=== PATIENT | male | born 1960 | race American Indian/Alaskan Native ===

== ENCOUNTER 2022-03-06 04:48 | Emergency (ER) | payer BC ==
[2022-03-06] MEDS ORDERED: ASPIRIN 325 MG TAB PO ONE (05:08)
[2022-03-06 05:39] LABS: Basophils # (Auto) 0.1 K/mm3 (0.0-0.1); Basophils % (Auto) 0.8 % (0.0-1.8); Eosinophils # (Auto) 0.2 K/mm3 (0.0-0.4); Eosinophils % (Auto) 1.9 % (0.0-4.3); Hematocrit 40.1 % (35.5-45.6); Hemoglobin 13.3 gm/dl (11.8-15.2); Lymphocytes # (Auto) 2.2 K/mm3 (1.2-5.4); Lymphocytes % (Auto) 25.8 % (13.4-35.0); Mean Corpuscular HGB Conc 33 % (32-34); Mean Corpuscular Volume 93 fl (84-94); Monocytes # (Auto) 0.9 K/mm3 (0.0-0.8); Monocytes % (Auto) 10.1 % (0.0-7.3); Platelet Count 293 K/mm3 (140-440); Red Blood Count 4.32 M/mm3 (3.65-5.03); Red Cell Distribution Width 12.9 % (13.2-15.2)
--- NOTE | 2022-03-06 05:39 | XRay Report ---
XR chest routine 2V INDICATION / CLINICAL INFORMATION: CHEST PAIN. COMPARISON: None available. FINDINGS: SUPPORT DEVICES: None. HEART /PULMONARY VASCULATURE: No significant abnormality. LUNGS / PLEURA: No significant pulmonary or pleural abnormality. No pneumothorax. ADDITIONAL FINDINGS: No significant additional findings. IMPRESSION: 1. No acute findings. Signer Name: Seferino Fall MD Signed: 03/06/2022 5:35 AM Workstation Name: [id number]
[2022-03-06 05:59] LABS: Alanine Aminotransferase 28 units/L (7-56); Albumin 4.4 g/dL (3.9-5); BUN/Creatinine Ratio 12; Blood Urea Nitrogen 16 mg/dL (9-20); Calcium 9.1 mg/dL (8.4-10.2); Hemolysis Index 22
--- NOTE | 2022-03-06 10:51 | Emergency Department Report ---
ED Chest Pain HPI - General Chief Complaint: Chest Pain Stated Complaint: CHEST PAIN Time Seen by Provider: 03/06/22 10:21 Source: patient Mode of arrival: Ambulatory Limitations: No Limitations - History of Present Illness Initial Comments: 61-year-old black male with a past medical history of diabetes and hypertension presents to the emergency department for evaluation of left chest pain. He states that he woke up around 2 AM this morning, went to the bathroom, then started to have pain in his chest. The pain was only when he took a deep breath, and he denies shortness of breath, nausea, vomiting, dizziness, and diaphoresis. He states that he has had a similar type pain 3 days ago and also about a month or so ago that he feels is most related to increased anxiety. He states that he has had to deal with a lot more stress lately after the of his adult child. He has not taken any medication for his pain and currently denies any chest pain. MD Complaint: chest pain -: Sudden, hour(s) Onset: awoke with symptoms Pain Location: left chest Pain Radiation: none Severity: moderate Quality: aching Consistency: intermittent Worsens With: inspiration re: denies: nausea, vomting, diaphoresis, dyspnea, sense of impending doom Other Symptoms: denies: cough, fever, syncope, rash, acid taste in mouth, leg swelling, palpitations, burping Treatments Prior to Arrival: none Aspirin use within the Past 7 Days: (0) No - Related Data Allergies Allergy/AdvReac Type Severity Reaction Status Date / Time metformin Allergy Unknown Verified 03/06/22 05:08 Heart Score - HEART Score History: Slightly suspicious EKG: Normal Age: 45-65 Risk factors: 1-2 risk factors Troponin: < normal limit HEART Score: 2 - EKG Read Time Time EKG Completed: 05:01 EKG Read Time: 05:16 - Critical Actions Critical Actions: 0-3 pts:0.9-1.7%risk of adverse cardiac event.Candidate for discharge ED Review of Systems ROS: Stated complaint: CHEST PAIN Other details as noted in HPI Comment: All other systems reviewed and negative Constitutional: denies: chills, fever Eyes: denies: eye pain, vision change ENT: denies: hearing loss, congestion Respiratory: denies: cough, shortness of breath, SOB with exertion, SOB at rest, stridor, wheezing Cardiovascular: chest pain. denies: palpitations, dyspnea on exertion, orthopnea, edema, syncope, paroxysmal nocturnal dyspnea Gastrointestinal: denies: abdominal pain, nausea, vomiting, diarrhea, hematemesis, melena, hematochezia Genitourinary: denies: urgency, dysuria, frequency, hematuria, discharge, testicular pain Musculoskeletal: denies: back pain Skin: denies: rash, lesions Neurological: denies: headache, weakness Psychiatric: anxiety ED Physical Exam - General Limitations: No Limitations General appearance: alert, in no apparent distress - Head Head exam: Absent: atraumatic, normocephalic - Eye Eye exam: Present: normal appearance. Absent: conjunctival injection - Neck Neck exam: Present: normal inspection, full ROM. Absent: tenderness, meningismus, lymphadenopathy - Respiratory Respiratory exam: Present: normal lung sounds bilaterally. Absent: respiratory distress, wheezes, rales, rhonchi, stridor, chest wall tenderness - Cardiovascular Cardiovascular Exam: Present: regular rate, normal heart sounds - GI/Abdominal GI/Abdominal exam: Present: soft, normal bowel sounds. Absent: distended, tenderness, guarding, rebound, rigid - Extremities Exam Extremities exam: Present: normal inspection, full ROM, normal capillary refill. Absent: tenderness, pedal edema, joint swelling, calf tenderness - Back Exam Back exam: Present: normal inspection. Absent: CVA tenderness (R), CVA tenderness (L) - Neurological Exam Neurological exam: Present: alert, oriented X3, normal gait - Psychiatric Psychiatric exam: Present: normal affect, normal mood - Skin Skin exam: Present: warm, dry, intact, normal color ED Course Vital Signs 03/06/22 03/06/22 05:10 11:07 Temperature 98.3 F 98.5 F Pulse Rate 90 77 Respiratory 18 20 Rate Blood Pressure 164/77 Blood Pressure 124/78 [Right] O2 Sat by Pulse 99 99 Oximetry - Reevaluation(s) Reevaluation #1: 03/06/22 10:49 Patient denies chest pain at this time. ED Medical Decision Making - Lab Data Result diagrams: 03/06/22 05:11 03/06/22 05:11 - EKG Data EKG shows normal: sinus rhythm Rate: normal - EKG Data Interpretation: no acute changes, normal EKG - Radiology Data Radiology results: report reviewed, image reviewed Chest x-ray: FINDINGS: SUPPORT DEVICES: None. HEART /PULMONARY VASCULATURE: No significant abnormality. LUNGS / PLEURA: No significant pulmonary or pleural abnormality. No pneumothorax. ADDITIONAL FINDINGS: No significant additional findings. IMPRESSION: 1. No acute findings. - Medical Decision Making 61-year-old black male with a past medical history of diabetes and hypertension presents to the emergency department for evaluation of left chest pain. He states that he woke up around 2 AM this morning, went to the bathroom, then started to have pain in his chest. The pain was only when he took a deep breath, and he denies shortness of breath, nausea, vomiting, dizziness, and diaphoresis. He states that he has had a similar type pain 3 days ago and also about a month or so ago that he feels is most related to increased anxiety. He states that he has had to deal with a lot more stress lately after the of his adult child. He has not taken any medication for his pain and currently den ies any chest pain. No gross abnormalities noted on exam. Patient denies chest pain at this time. EKG without any acute ischemic changes noted, troponin within normal limits x2, chest x-ray without any acute abnormalities noted, and heart score of 2. Patient will be discharged home and advised to follow-up with cardiology for further evaluation and management. He is advised to return to the emergency department for any concerning symptoms. He verbalizes understanding of and agreement with plan of care. Critical care attestation.: If time is entered above; I have spent that time in minutes in the direct care of this critically ill patient, excluding procedure time. ED Disposition Clinical Impression: Chest pain Qualifiers: Chest pain type: unspecified Qualified Code(s): R07.9 - Chest pain, unspecified Disposition: 01 HOME / SELF CARE / HOMELESS Is pt being admited?: No Does the pt Need Aspirin: No Condition: Stable Instructions: Nonspecific Chest Pain, Adult, [id number] Additional Instructions: Follow-up with cardiology for further evaluation and management. Return to the emergency department for any concerning symptoms. Referrals: LOVE QUINN MD [Primary Care Provider] - 3-5 Days TANI GORDON MD [Staff Physician] - 3-5 Days Time of Disposition: 10:51
[2022-03-06 11:08] VITALS: BP 124/78
--- NOTE | 2022-03-06 11:44 | Electrocardiograph Report ---
[facility] Test Date: 2022-03-06 Test Time: 05:01:52 Pat Name: LILLIANA BECERRA Department: Room: Gender: M Pm Head Cook: TAMMY : 1960 Requested By: ED DOC Order Number: [id number] Reading MD: Foreign Davis Measurements Intervals [place] Rate: 87 P: 52 RI: 152 QRS: -11 QRSD: 74 T: 21 QT: 324 QTc: 389 Interpretive Statements Sinus rhythm No previous ECG available for comparison Electronically Signed On 03-06-2022 11:43:58 EDT by Foreign Davis
== END 2022-03-06 11:07 | disposition home or self-care (01) ==
LOC: ED 04:48
DX: R07.9 Chest pain, unspecified (principal); Z88.8 Allergy status to other drugs, medicaments and biological substances
CPT/HCPCS: 36415; 71046; 80053; 84484; 85025; 93005; 99283